=== PATIENT | male | born 1990 | race African-American/Black ===

== ENCOUNTER 2018-10-26 13:49 | Emergency (ER) | payer MEDICAID, OTHER ==
[~2018-10-26] VITALS: Ht 170.2 cm; Wt 100.0 kg
[~2018-10-26 13:49] MED LIST: SERT25TA
[2018-10-26] MEDS ORDERED: ACETAMINOPHEN 325MG TABLET PO STA (14:47)
[2018-10-26] MEDS ORDERED: SODIUM CHLORIDE 0.9% 1,000 ML IV ONE ×2 (14:47→20:45)
[2018-10-26 15:14] LABS: CHLORIDE 102 mEq/L (98-107)
[2018-10-26 15:27] LABS: BASOPHILS % 0.2 % (0.0-2.0); EOSINOPHILS % 0.8 % (0.0-5.0); HEMATOCRIT. 44.8 % (42.0-52.0); HEMOGLOBIN. 15.1 g/dL (14.0-18.0); LYMPHOCYTES % 23.5 % (20.0-50.0); MEAN CORPUSCULAR HEMOGLOBIN 30.1 pg (28.0-32.0); MEAN CORPUSCULAR VOLUME 89.4 fL (80.0-94.0); MEAN PLATELET VOLUME 8.1 fl (7.4-10.4); MONOCYTES % 10.9 % (2.0-8.0); NEUTROPHILS % 64.6 % (40.0-76.0); PLATELET 354 x1000/uL (130-400); RED BLOOD CELL COUNT 5.01 mill/uL (4.7-6.1); RED CELL DISTRIBUTION WIDTH 13.6 % (11.6-14.6)
[2018-10-26] MEDS ORDERED: IOHEXOL-300 100 ML BOTTLE ONE (15:52)
[2018-10-26 15:54] LABS: PROTHROMBIN TIME 10.7 sec (9.6-11.0)
[2018-10-26] MEDS: AMPICILLIN SOD/SULBACTAM NA 3 G in SODIUM CHLORIDE 0.9% 100 ML IV SCH (18:42)
[2018-10-26] MEDS ORDERED: MORPHINE SULFATE 4 MG/ML CPJ (NOT FOR IM USE) IV ONE (20:45)
[2018-10-27] MEDS: AMPICILLIN SOD/SULBACTAM NA 3 G in SODIUM CHLORIDE 0.9% 100 ML IV SCH ×3 (00:15→07:02)
[2018-10-27] MEDS ORDERED: MORPHINE SULFATE 4 MG/ML CPJ (NOT FOR IM USE) IV ONE (01:45)
[2018-10-27 11:04] VITALS: BP 117/68
== END 2018-10-27 11:23 | disposition short-term general hospital (02) ==
LOC: ER 14:00
DX: L02.11 Cutaneous abscess of neck (principal); F12.10 Cannabis abuse, uncomplicated; F17.210 Nicotine dependence, cigarettes, uncomplicated
CPT/HCPCS: 36415; 70460; 70491; 80053; 82962; 85025; 85610; 96365; 96366; 96375; 99285; J0295; J2270; J7030; J7050; Q9967

== ENCOUNTER 2019-12-16 14:41 | Emergency (ER) | payer MEDICAID ==
[~2019-12-16] VITALS: Ht 170.2 cm; Wt 68.5 kg
[2019-12-16 16:06] LABS: BASOPHILS % 0.4 % (0.0-2.0); EOSINOPHILS % 6.2 % (0.0-5.0); HEMATOCRIT. 39.8 % (42.0-52.0); HEMOGLOBIN. 13.7 g/dL (14.0-18.0); LYMPHOCYTES % 53.2 % (20.0-50.0); MEAN CORPUSCULAR HEMOGLOBIN 30.8 pg (28.0-32.0); MEAN CORPUSCULAR VOLUME 89.8 fL (80.0-94.0); MONOCYTES % 10.5 % (2.0-8.0); NEUTROPHILS % 29.7 % (40.0-76.0); PLATELET 213 x1000/uL (130-400); RED BLOOD CELL COUNT 4.44 mill/uL (4.7-6.1); RED CELL DISTRIBUTION WIDTH 12.9 % (11.6-14.6)
[2019-12-16 16:10] LABS: CHLORIDE 109 mEq/L (98-107)
[2019-12-16 16:14] LABS: ETHANOL BLOOD < 10 mg/dL
[2019-12-16 16:19] LABS: CREATINE KINASE 173 IU/L (39-308)
[2019-12-16 20:15] VITALS: BP 124/72
== END 2019-12-16 21:16 | disposition home or self-care (01) ==
LOC: ER 14:41
DX: T43.621A Poisoning by amphetamines, accidental (unintentional), initial encounter (principal); F15.129 Other stimulant abuse with intoxication, unspecified; G92 Toxic encephalopathy; Z78.1 Physical restraint status; R45.1 Restlessness and agitation; F12.90 Cannabis use, unspecified, uncomplicated; Y92.59 Other trade areas as the place of occurrence of the external cause
CPT/HCPCS: 36415; 71045; 80053; 80307; 80320; 80329; 82140; 82550; 84484; 85025; 93005; 99285; G0480